=== PATIENT | female | born 1995 | race Hispanic/Latino ===

== ENCOUNTER 2022-02-09 10:10 | Emergency (ER) | payer MEDICAID, OTHER ==
[~2022-02-09] VITALS: Ht 157.5 cm; Wt 54.4 kg
[2022-02-09 10:15] VITALS: BP 107/65
[2022-02-09] MEDS ORDERED: IBUP-2070 PO (11:28)
[2022-02-09] MEDS ORDERED: IBUPROFEN 600 MG TABLET PO ONE (11:30)
== END 2022-02-09 11:40 | disposition home or self-care (01) ==
LOC: EDH 10:10
DX: S63.502A Unspecified sprain of left wrist, initial encounter (principal); S43.402A Unspecified sprain of left shoulder joint, initial encounter; Z79.1 Long term (current) use of non-steroidal anti-inflammatories (NSAID); W01.0XXA Fall on same level from slipping, tripping and stumbling without subsequent striking against object, initial encounter; Y93.89 Activity, other specified; Y92.89 Other specified places as the place of occurrence of the external cause; Y99.8 Other external cause status
CPT/HCPCS: 73030; 73110